=== PATIENT | female | born 1990 | race Caucasian/White ===

== ENCOUNTER 2017-09-20 17:24 | Emergency (ER) | payer OTHER, MEDICAID ==
[~2017-09-20] VITALS: Ht 172.7 cm; Wt 86.2 kg
[~2017-09-20 17:24] MED LIST: BACTRIM DS TAB1 EACH PO; DIFLUCAN150 MG PO; FLAGYL500 MG PO; PYRIDIUM200 MG PO
[2017-09-20] MEDS ORDERED: REGLAN 10 MG TA10 MG PO (17:41)
[2017-09-20 18:01] LABS: URINE BLOOD NEGATIVE (Negative); URINE CLARITY CLEAR; URINE COLOR YELLOW; URINE GLUCOSE-RANDOM NEGATIVE (Negative); URINE LEUKOCYTES NEGATIVE (Negative); URINE NITRITE NEGATIVE (Negative); URINE PROTEIN 1+ (Negative); URINE SPECIFIC GRAVITY >= 1.030 (1.005-1.030); URINE UROBILINOGEN 0.2 E.U./dl (0.2-1.0)
[2017-09-20 18:08] LABS: ABSOLUTE LYMPHOCYTES 1.2 thou/uL (0.8-5.3); ABSOLUTE MONOCYTES 0.9 thou/uL (0.0-1.2); ABSOLUTE NEUTROPHILS 8.7 thou/uL (1.6-8.1); BASOPHILS 0.4 %; EOSINOPHILS 0.2 %; HEMOGLOBIN 14.4 gm/dL (12.0-15.0); LYMPHOCYTES 10.7 %; MCH 31.2 pg (26.0-34.0); MCHC 34.3 g/dL (28.0-37.0); MCV 91.1 fL (80.0-100.0); MONOCYTES 8.4 %; NUCLEATED RBCS 0 /100WBC; PLATELET COUNT* 372 thou/uL (150-400); POLYS 80.3 %; RBC 4.61 mil/uL (4.20-5.00); RDW-CV 12.5 % (10.5-14.5); WBC 10.8 thou/uL (4.0-11.0)
[2017-09-20 18:10] LABS: ICTOTEST (BILI CONFIRMATORY) Negative (Negative); URINE BILIRUBIN 1+ (Negative); URINE KETONES 3+ (Negative); URINE REDUCING SUBSTANCE NEGATIVE (Negative)
[2017-09-20 18:15] LABS: CALCIUM 9.1 mg/dL (8.5-10.1); CREATININE 0.7 mg/dL (0.6-1.3); POTASSIUM 3.1 mmol/L (3.5-5.1)
[2017-09-20 18:19] LABS: ALBUMIN 4.7 g/dL (3.4-5.0); TOTAL PROTEIN 8.8 g/dL (6.4-8.2)
[2017-09-20] MEDS ORDERED: ZOFRAN ODT4 MG PO (19:38)
[2017-09-20 19:56] VITALS: BP 117/58
== END 2017-09-20 19:56 | disposition home or self-care (01) ==
LOC: M.ERS 17:24
PROVIDERS: Physician Assistant Surgical
DX: O21.0 Mild hyperemesis gravidarum (principal); Z3A.08 8 weeks gestation of pregnancy